=== PATIENT | female | born 1965 | race Caucasian/White ===

== ENCOUNTER 2020-06-30 06:05 | Day surgery (SDC) | payer BC ==
[~2020-06-30] VITALS: Ht 167.6 cm; Wt 69.1 kg
--- NOTE | ~2020-06-30 | OR ---
[facility] [address] [place], [place] [address] Draft DATE OF OPERATION: 06/30/2020 SURGEON: Kizzy Queen MD PREOPERATIVE DIAGNOSIS: Metrorrhagia, endometrial polyp. POSTOPERATIVE DIAGNOSIS: Metrorrhagia, endometrial polyp. PROCEDURE: Hysteroscopy, resection of polyp. ANESTHESIA: MAC. ESTIMATED BLOOD LOSS: Minimal. DRAINS: None. INDICATIONS AND FINDINGS: The patient is a 55-year-old female, 4, para 3, SAB1, who has been having abnormal bleeding on control pills. She has been spotting in between. Evaluation in the office revealed a probable endometrial polyp. At the time of surgery, exam under anesthesia revealed a normal-size uterus without adnexal masses. The cavity sounded to 7.5 cm. The cavity was atrophic other than an anterior fundal polyp. DESCRIPTION OF PROCEDURE: The patient was prepped and draped in the dorsal lithotomy position. A weighted speculum was placed. The anterior lip of the cervix was visualized and grasped with a single-tooth tenaculum. The cavity was sounded to 7.5 cm. The endocervical canal was then dilated to a #8 dilator. Following this, the MyoSure device was placed and the cavity evaluated. The anterior polyp was noted and the remaining cavity was atrophic. Both tubal ostia were identified. The MyoSure Lite was then introduced and the polyp resected using the MyoSure Lite. Following this, the cavity appeared normal. The procedure was then terminated with removal of the instruments. There was no bleeding from the tenaculum site. The insert was removed. The patient was taken to the recovery room in PATIENT NAME: CHRISTOFER HARDING OPERATIVE REPORT DATE OF : 65 REPORT #: [id number] PHYSICIAN: KIZZY QUEEN MD PCP: SLOANE HENLEY DO REPORT IS CONFIDENTIAL AND NOT TO BE RELEASED WITHOUT AUTHORIZATION [address], [place] [address] [facility]. MD YEVGENIY Jerry/TIFFANY /[id number] Copies: ~ PATIENT NAME: CHRISTOFER HARDING OPERATIVE REPORT DATE OF : 65 REPORT #: [id number] PHYSICIAN: KIZZY QUEEN MD PCP: SLOANE HENLEY DO REPORT IS CONFIDENTIAL AND NOT TO BE RELEASED WITHOUT AUTHORIZATION
[~2020-06-30 06:05] MED LIST: ACYCLOVIR400 MG PO; CALCIUM500 MG PO; FLEXERIL5 MG PO; MAG-OXIDE400 MG PO; MULTI VITAMIN1 EACH PO; NAPROXEN500 MG PO; NORDETTE-281 EACH PO; PERCOCET 7.5-31 EACH PO; TURMERIC1 GM MISC; VITAMIN D31000 UNI1 PO; ZOFRAN4 MG PO; ZYRTEC10 MG PO
[2020-06-30] MEDS ORDERED: TYLENOL EXTRA500 MG PO (06:18)
[2020-06-30] MEDS ORDERED: ADVIL200 MG PO (06:19)
--- NOTE | 2020-06-30 07:55 | NUR ---
[facility]IVED IN PACU NON RESPONSIVE TO NOXIOUS STIMULI. 0750 PT REACTIVE TO VERBAL STIMULI. OPENS EYES, THEN FALLS BACK TO SLEEP.
--- NOTE | 2020-06-30 13:28 | NUR ---
PT WAS BEING WHEELED TO OR BY STAFF WAVED TO PT AND GAVE A BLESSING. MET WITH PT'S , HE IS HEADED TO CAFETERIA. WILL WAIT FOR PT. GAVE ENCOURAGEMENT AND BLESSING. WILL FOLLOW NEEDED
--- NOTE | 2020-07-05 12:41 | PATH ---
[facility] [address] [place], [place] [address] Signed SPECIMEN(S): A ENDOMETRIAL POLYP SPECIMEN SOURCE: A. ENDOMETRIAL POLYP CLINICAL HISTORY: Hysteroscopy, DC. Irregular bleeding; endometrial polyp. FINAL PATHOLOGIC DIAGNOSIS: Uterus, endometrium and endometrial polyp, curettage: - Weakly proliferative/early secretory phase endometrium with focal disordered proliferation. - Fragment of endometrium with features suggestive of benign endometrial polyp. - Myometrial smooth muscle with no histopathologic abnormality. - Negative for atypical hyperplasia or malignancy. NAL:cml:C2NR MICROSCOPIC EXAMINATION: Histologic sections of all submitted blocks are examined by light microscopy. These findings, together with the gross examination, support the pathologic diagnosis. GROSS DESCRIPTION: The specimen, labeled "RACHEL, A.," and designated on the requisition "endometrial polyp," is received in formalin and consists of steward-brown tissue fragments with mucus and clot material measuring 2.5 x 1.5 x 0.4 cm in aggregate. Specimen is filtered and entirely submitted in cassette (A1). AT (under the direct supervision of a pathologist) The Gross Description was prepared using a voice recognition system. The report was reviewed for accuracy; however, sound-alike word errors, addition and/or deletions may occur. If there is any question about this report, please contact Client Services. PERFORMING LABORATORY: The technical component was performed by [facility], [address] [place] [id number] ([employer] Salesperson: Kimi Hager MD; CLIA# [id number]). Professional interpretation was performed by [facility], [facility], [address] [place] [id number] (CLIA# [id number]). PATIENT NAME: CHRISTOFER HARDING PATHOLOGY DATE OF : 65 REPORT #: [id number] PHYSICIAN: [facility] PCP: SLOANE HENLEY DO REPORT IS CONFIDENTIAL AND NOT TO BE RELEASED WITHOUT AUTHORIZATION [facility] [address] [place] [address] Signed Diagnostician: Darleen Byrne MD Pathologist Electronically Signed 07/05/2020 Copies: ~ PATIENT NAME: CHRISTOFER HARDING PATHOLOGY DATE OF : 65 REPORT #: [id number] PHYSICIAN: DE[facility] PATHOLOGY PCP: SLOANE HENLEY DO REPORT IS CONFIDENTIAL AND NOT TO BE RELEASED WITHOUT AUTHORIZATION
== END 2020-06-30 08:40 | disposition home or self-care (01) ==
LOC: DS 06:05
PROVIDERS: ATTEND Obstetrics & Gynecology
PROC: 0UB98ZX Excision of Uterus, Via Natural or Artificial Opening Endoscopic, Diagnostic (ICD-10-PCS; principal; 2020-06-30 06:45)
DX: N84.0 Polyp of corpus uteri (principal); Z79.899 Other long term (current) drug therapy; Z79.1 Long term (current) use of non-steroidal anti-inflammatories (NSAID); Z79.3 Long term (current) use of hormonal contraceptives; Z88.5 Allergy status to narcotic agent
CPT/HCPCS: 00952; J0131; J1100; J2001; J2405; J2704; J2765; J3010; J7121

== ENCOUNTER 2021-04-16 13:57 | Emergency (ER) | payer OTHER, BC ==
[~2021-04-16] VITALS: Ht 167.6 cm; Wt 69.0 kg
[~2021-04-16 13:57] MED LIST changes: +ADVIL200 MG PO; +TYLENOL EXTRA500 MG PO
[2021-04-16] MEDS ORDERED: HYDROMORPHONE HC2 MG PO (15:54)
[2021-04-16] MEDS ORDERED: KETOROLAC TROME10 MG PO (15:54)
== END 2021-04-16 16:30 | disposition home or self-care (01) ==
LOC: ED 13:57
DX: S76.311A Strain of muscle, fascia and tendon of the posterior muscle group at thigh level, right thigh, initial encounter (principal); W01.0XXA Fall on same level from slipping, tripping and stumbling without subsequent striking against object, initial encounter; Y93.01 Activity, walking, marching and hiking; Z88.5 Allergy status to narcotic agent; Z79.899 Other long term (current) drug therapy
CPT/HCPCS: 73502; 96374; 96375; 99283-25; J1170; J1885

== ENCOUNTER 2023-08-29 07:10 | Day surgery (SDC) | payer BC ==
[2023-08-21 08:25] VITALS: BP 110/64
[~2023-08-29] VITALS: Ht 167.6 cm; Wt 70.9 kg
--- NOTE | ~2023-08-29 | OR ---
[facility] [address] [place], [place] [address] Draft DATE OF OPERATION: 08/29/2023 SURGEON: Zack Queen MD PREOPERATIVE DIAGNOSIS: Pelvic pain, postmenopausal bleeding. POSTOPERATIVE DIAGNOSES: Pelvic pain, postmenopausal bleeding with small area of endometriosis. ANESTHESIA: General ET. ESTIMATED BLOOD LOSS: Minimal. DRAINS: None. INDICATIONS AND FINDINGS: The patient is a 58-year-old female, who has been having some pelvic pain as well as abnormal bleeding. Ultrasound was normal though the endometrial stripe was approximately 3.5 cm. At the time of the surgery, the exam under anesthesia was normal. At the time of laparoscopy, the pelvis appeared normal other than a tiny area of endometriosis in the right pelvis. On hysteroscopy, the cavity appeared completely atrophic. DESCRIPTION OF PROCEDURE: The patient is prepped and draped in the dorsal lithotomy position. A weighted speculum was placed. The anterior lip of the cervix was visualized and grasped with a single-tooth tenaculum. The Hulka clamp was then placed and the tenaculum and speculum removed. Attention was directed above. The infraumbilical area was injected with 0.5% Marcaine plain. The incision was made with a knife, and each layer was serially elevated incised until the fascia was opened and identified and stay sutures of 0 Vicryl were placed. The peritoneum was opened bluntly. Heidy was placed and the balloon inflated. The abdomen was then inflated with carbon dioxide gas. Once it was appropriately distended, a secondary port was placed on the left side. This area is transilluminated, injected with the Marcaine, incision made with a knife and a 5 mm port placed under direct vision. Following this, the pelvis was completely evaluated and it was normal except for that tiny area of endometriosis and this area was cauterized. It PATIENT NAME: CHRISTOFER HARDING OPERATIVE REPORT DATE OF : 65 REPORT #: [id number] PHYSICIAN: ZACK QUEEN MD PCP: MOESS CAMACHO REPORT IS CONFIDENTIAL AND NOT TO BE RELEASED WITHOUT AUTHORIZATION [facility] [address] [place], [place] [address] Draft was very superficial. Following this, the instruments were removed from the abdomen after allowing as much CO2 as possible to escape. The fascia was re-identified and closed with a running suture of 0 Vicryl. The skin incisions were closed with subcuticular sutures of 3-0 Vicryl Rapide. Attention was directed down below and the weighted speculum was replaced. The Hulka clamp was removed and the tenaculum replaced. The endocervical canal was then dilated to a #8 dilator. The uterus sounded to 8 cm. The MyoSure device was placed and the cavity evaluated. The cavity was completely atrophic with no abnormality seen. Hysteroscopy was complete with removal of the MyoSure and the tenaculum. There was some bleeding from the tenaculum sites, which does not respond to pressure with the ring forceps. Following this, a suture of 0 chromic was placed in a [id number] manner with good hemostasis noted. All sponge and needle counts were correct. She tolerated the procedure well and was taken to the recovery room in good condition. MD JESUS JerryW/MODL /[id number] Copies: ~ PATIENT NAME: MEHDICHRISTOFER CHONGN OPERATIVE REPORT DATE OF : 65 REPORT #: [id number] PHYSICIAN: ZACK QUEEN MD PCP: MOSES CAMACHO REPORT IS CONFIDENTIAL AND NOT TO BE RELEASED WITHOUT AUTHORIZATION
[~2023-08-29 07:10] MED LIST changes: +HYDROMORPHONE HC2 MG PO; +KETOROLAC TROME10 MG PO; +TURMERIC500 M3 PO
[2023-08-29 07:24] VITALS: BP 124/76
--- NOTE | 2023-08-29 10:49 | NUR ---
08/29/23 1049 Brenda Kmuari 1045 PT AWAKE DENIES NAUSEA, REPORTS PAIN IS 4/10 BUT TOLERABLE. PT FELL BACK TO SLEEP.
[2023-08-29 11:55] VITALS: BP 117/71
--- NOTE | 2023-08-29 12:30 | NUR ---
LE 1150 PATIENT BACK TO TREATMENT ROOM. VITAL SIGNS COMPLETE. PATIENT ALERT AND ORIENTED. BREATHING EQUAL AND UNLABORED. OXYGEN SATURATIONS 90% ON ROOM AIR. PATIENT PAIN IS 2/10 AND TOLERABLE. PATIENT DENIES BEING NAUSEATED. LAP SITES CLEAN, DRY AND INTACT. IVF INFUSING. SCD'S ON. AT BEDSIDE. CALL LIGHT WITHIN REACH NO FUTHER NEEDS OR QUESTIONS. LE 1215 PATIENT DRINKING BROTH, WATER. EATING CRACKERS. CALL LIGHT WITHIN REACH NO FUTHER NEEDS.
[2023-08-29 12:52] VITALS: BP 118/60
--- NOTE | 2023-08-29 12:54 | NUR ---
LE 1250 PATIENT IS ALERT AND ORIENTED. BREATHING EQUAL AND UNLABORED. OXYGEN SATURATIONS ABOVE 90% ON ROOM AIR. PATIENT DENIES HAVING ANY PAIN. PATIENT DENIES HAVING NAUSEA, PATIENT SURGICAL SITE CLEAN, DRY AND INTACT. CALL LIGHT WITHIN REACH NO FUTHER NEEDS. FRIEND AT BEDSIDE.
--- NOTE | 2023-08-29 13:37 | NUR ---
1335 PATIENT ABLE TO AMBULATE TO THE RESTROOM. PATIENT VOIDED PINK/RED URINE. 300 MLS. PATIENT GIVEN A MEGHANA PAD. PATIENT LAP SITES CLEAN, DRY AND INTACT. PATIENT DENIES PAIN OR BEING NAUSEATED. PATIENT ABLE TO DRESS SELF AND TOLERATED IT WELL. PATIENT GIVEN DISCHARGE INSTRUCITONS. NO QUESITIONS AT THIS TIME. PATIENT WAITING TILL 1355 TO DISCHARGE D/T PHARMACY FILLING SCRIPT.
--- NOTE | 2023-08-29 14:19 | NUR ---
LE 1355 PATIENT WHEELED OUT TO PRIVATE AUTO. NO QUESTIONS AT THIS TIME. PATIENT DISCHARGED.
--- NOTE | 2023-08-31 11:30 | PATH ---
[facility] [address] [place], [place] [address] Signed SPECIMEN(S): A FALLOPIAN TUBES, BILATERAL SPECIMEN SOURCE: A. FALLOPIAN TUBES, BILATERAL CLINICAL HISTORY: Postmenopausal bleeding, pelvic pain. FINAL PATHOLOGIC DIAGNOSIS: Fallopian tubes, bilateral, salpingectomy: - Fimbriated fallopian tube segments (two) with a paratubal cyst BRP MICROSCOPIC EXAMINATION: Histologic sections of all submitted blocks are examined by light microscopy. These findings, together with the gross examination, support the pathologic diagnosis. GROSS DESCRIPTION: The specimen, labeled and designated "Harding, bilateral fallopian tubes," is received in formalin and consists of two undesignated fallopian tubes. Both show fimbria and violaceus and smooth serosa. The first tube measures 7.5 x 0.7 cm. The second fallopian tube measures 5.0 x 0.6 cm. Sectioning through both fallopian tubes is grossly unremarkable. Cassette Summary: (A1) first fallopian tube, sales training representative sections (A2) second fallopian tube, sales training representative sections JS (under the direct supervision of a pathologist) The Gross Description was prepared using a voice recognition system. The report was reviewed for accuracy; however, sound-alike word errors, addition and/or deletions may occur. If there is any question about this report, please contact Client Services. ADDITIONAL NOTES: Immunohistochemical and/or in situ hybridization studies if performed in this case included appropriate positive controls that reacted as expected. This test was developed and its performance characteristics determined by [facility]. It has not been cleared or approved by the U.S. Food and Drug Administration. The FDA has determined that such clearance or approval is not necessary. This test is used for clinical purposes. It should not be regarded PATIENT NAME: CHRISTOFER HARDING PATHOLOGY DATE OF : 65 REPORT #: [id number] PHYSICIAN: DEANNE PATHOLOGY PCP: MOSES CAMACHO REPORT IS CONFIDENTIAL AND NOT TO BE RELEASED WITHOUT AUTHORIZATION [facility] [address] [place], [place] [address] Signed as investigational or for research. [facility] is certified under the Clinical Laboratory Improvement Amendments of 1988 (CLIA) as qualified to perform high complexity clinical laboratory testing. PERFORMING LABORATORY: Technical component was performed by [facility], [address] [place] [id number] (CLIA# [id number]). Professional interpretation was performed by [facility], [address] [place] [place] [address] (CLIA#:[id number]). Diagnostician: Tahir Harding MD Pathologist Electronically Signed 08/31/2023 Copies: ~ PATIENT NAME: CHRISTOFER HARDING PATHOLOGY DATE OF : 65 REPORT #: [id number] PHYSICIAN: DEANNE PATHOLOGY PCP: MOSES CAMACHO REPORT IS CONFIDENTIAL AND NOT TO BE RELEASED WITHOUT AUTHORIZATION
== END 2023-08-29 13:55 | disposition home or self-care (01) ==
LOC: DS 07:10 → OPS 07:10 → DS 09:15 → OPS 13:55
PROVIDERS: ATTEND Obstetrics & Gynecology
PROC: 0UB74ZZ Excision of Bilateral Fallopian Tubes, Percutaneous Endoscopic Approach (ICD-10-PCS; principal; 2023-08-29 09:15)
DX: N95.0 Postmenopausal bleeding (principal); N83.8 Other noninflammatory disorders of ovary, fallopian tube and broad ligament; Z88.8 Allergy status to other drugs, medicaments and biological substances
CPT/HCPCS: J0131; J1100; J1170; J1644; J1885; J2250; J2405; J2704; J2765; J3010; J3490; J7121

== ENCOUNTER 2024-12-01 10:49 | Day surgery (SDC) | payer BC ==
[~2024-12-01] VITALS: Ht 167.6 cm; Wt 69.0 kg
[~2024-12-01 10:49] MED LIST changes: +ACETAMINOPHEN-1 EAC3 PO; +ASHWAGANDHA300 MG PO; +CALCIUM 250-D1 EACH PO; -CALCIUM500 MG PO; +CEFAZOLIN SODIUM 2 GM/20 ML SYR IV SCH; +ESTROVEN MAX400 MCG PO; +IBLOOD GLUCOSE TEST STRIP 1 EA TEST VI PRN; +KETOROLAC TROMETHAMINE 30 MG/ML VIAL ONE; +LACTATED RINGER'S 1,000 ML IV SCH; +LIDOCAINE HCL 1% 5 ML SDV INJ ONE; +PROBIOTIC1 EAC5 PO; +PROBIOTIC250 MG PO; +TRIAMCINOLONE ACET 40 MG/ML VIAL 1 ML ONE; +TYLENOL325 MG PO; +VITAMIN C500 M5 PO; +ZINC50 MG PO; +[UNRECOGNIZED DRUG - OTHER]
[2024-12-01] MEDS ORDERED: NALOXONE HCL 0.4 MG SYR IV PRN (11:00)
[2024-12-01] MEDS ORDERED: ondansetron HCL 4 MG/2 ML VIAL IV PRN (11:00)
[2024-12-01] MEDS ORDERED: fentaNYL citrate 50 MCG/ML SDV IV PRN (11:00)
[2024-12-01] MEDS ORDERED: IBLOOD GLUCOSE TEST STRIP 1 EA TEST VI PRN (11:00)
[2024-12-01 11:13] VITALS: BP 111/63
[2024-12-01] MEDS ORDERED: KETOROLAC TROMETHAMINE 30 MG/ML VIAL ONE (11:50)
[2024-12-01] MEDS ORDERED: LIDOCAINE HCL 2% 5 ML SDV ONE (11:50)
[2024-12-01] MEDS ORDERED: DEXAMETHASONE SOD PHOS 4 MG/ML VIAL ONE (11:50)
[2024-12-01] MEDS ORDERED: MIDAZOLAM HCL 2 MG/2 ML VIAL ONE (11:50)
[2024-12-01] MEDS ORDERED: fentaNYL citrate 100 MCG/2 ML VIAL ONE (11:50)
[2024-12-01] MEDS ORDERED: ondansetron HCL 4 MG/2 ML VIAL ONE (11:50)
[2024-12-01] MEDS ORDERED: propofoL 200 MG/20 ML VIAL ONE (11:50)
[2024-12-01] MEDS ORDERED: KETOROLAC TROMETHAMINE 15 MG/ML VIAL IV PRN (12:15)
[2024-12-01] MEDS ORDERED: TRAMADOL HCL 50 MG TAB PO PRN (12:15)
[2024-12-01] MEDS ORDERED: GLYCOPYRROLATE 1 MG/5 ML MDV ONE (12:25)
[2024-12-01] MEDS ORDERED: ePHEDrine sulfate 50 MG/ML AMP ONE (12:32)
[2024-12-01] MEDS ORDERED: ACETAMINOPHEN 1,000 MG/100 ML VIAL ONE (12:38)
[2024-12-01] MEDS ORDERED: DICLOFENAC SODI75 MG PO (12:55)
[2024-12-01] MEDS ORDERED: TRAMADOL HCL50 MG PO (12:56)
[2024-12-01] MEDS ORDERED: HYDROmorphone HCL 1 MG/ML SYR ONE (13:26)
[2024-12-01] MEDS ORDERED: droPERidol 5 MG/2 ML VIAL ONE (13:40)
[2024-12-01] MEDS ORDERED: HYDROmorphone HCL 1 MG/ML SYR IV PRN (13:45)
[2024-12-01] MEDS ORDERED: droPERidol 5 MG/2 ML VIAL IV PRN (13:45)
[2024-12-01] MEDS ORDERED: SEVOFLURANE 250 ML BTL INH ONE (13:58)
[2024-12-01 14:05] VITALS: BP 104/59
--- NOTE | 2024-12-01 14:05 | NUR ---
PT ARRIVED BACK TO ON RA, AAOX3, AND ANSWERING QUESTIONS APPROPRIATELY. PTS IN ROOM UPON HER RETURN. REPORT RECEIVED FROM [employer]ADIES[employer] LOCKER ROOM ATTENDANT AND SURGICAL SITE WAS VISUALIZED. DRSG TO R KNEE APPEARS CDI. RLE IS ELEVATED AT APPROX HEART LEVEL WITH ICE IN PLACE TO SURGICAL SITE. PT ALSO NOTED WITH ICE PACK TO BACK OF HEAD D/T REPORTS OF FREEMAN AND NAUSEA. LIGHTS DIM FOR PTS COMFORT. IV SITE ASSESSED AND INFUSING LR PER ORDERS. VS TAKEN. PT REPORTS PAIN 4/10 IN R KNEE. NO PAIN IN R HAND R/T KENALOG INJECTION ALSO GIVEN IN OR. NO REDNESS OR BLEEDING NOTED FROM R HAND. PT ALSO REPORTS SOME NAUSEA, BUT DOES SAY IT IS IMPROVING. PT PROVIDED WITH SALTINE CRACKERS, ICE WATER, DIET PEPSI, AND JELLO. BED IN LOW POSITION, WHEELS LOCKED, BILAT RAILS IN PLACE. CALL LIGHT WITHIN PT REACH. PTS REMAINS AT BEDSIDE. PT RECEIVED FLOWER DELIVERY WELL. ALL QUESTIONS ANSWERED.
--- NOTE | 2024-12-01 14:21 | NUR ---
PO PAIN MEDS GIVEN PER EMAR FOR REPORTS OF PAIN 4/10 IN R KNEE AREA.
--- NOTE | 2024-12-01 14:25 | NUR ---
INTO PTS ROOM FOR DC EDUCATION. PTS REMAINS AT BEDSIDE. PT GIVEN VERBAL AND WRITTEN DC INSTRUCTIONS WELL DR. ANDREA POST-OPERATIVE INSTRUCTIONS HAND OUT FOR KNEE ARTHROSCOPIES. PT PROVIDED POST-OP APPT FOR 12/11/[address] ANDREA AFTER HOURS PHONE NUMBER. PT VERBALIZED UNDERSTANDING AND ALL QUESTIONS WERE ANSWERED. ICE WATER REFILLED. FALL PREVENTIONS IN PLACE. CALL LIGHT WITHIN PT REACH.
--- NOTE | 2024-12-01 14:40 | NUR ---
DR. ANDREA NOTIFIED OF PTS NEED FOR ZOFRAN RX FOR HOME. RX FOR ZOFRAN 4MG ODT TABS, 1 TAB PO Q6H PRN N/V, #[address] [facility]. PT AND SPOUSE INFORMED.
--- NOTE | 2024-12-01 14:45 | NUR ---
PT FEELS SHE MAY BE ABLE TO VOID AND WOULD LIKE TO TRY AND USE RESTROOM. PT ASSISTED WITH SITTING UP ON EOB AND THEN AMBULATED DOWN KIM TO RESTROOM WITH RN SUPERVISION AND SPOUSE ASSISTANCE FOR SAFETY. PT ABLE TO VOID APPROX 150 ML OF CLR, YELLOW URINE. PT AMBULATED BACK TO ROOM WITH RN SUPERVISION AND SPOUSE ASSIST. PT DRESSING WITH HUSBANDS ASSISTANCE. PERSONAL BELONINGS AND CALL LIGHT ON BED WITHIN PT REACH.
[2024-12-01 15:00] VITALS: BP 119/44
--- NOTE | 2024-12-01 15:00 | NUR ---
INTO PTS ROOM FOR ROUTINE REASSESSMENT. VS TAKEN. SURGICAL SITE VISUALIZED AND DRSG REMAINS CDI POST-AMBULATION. PT REPORTS MINIMAL NAUSEA, SIGNIFICANTLY IMPROVED FROM EARLIER. PT RATES PAIN 3/10 IN R KNEE, REPORTING IMPROVEMENT AFTER PO PAIN MEDS GIVEN EARLIER AND WITH RESTING AFTER RECENT AMBULATION. PT REPORTS THIS TO BE A TOLERABLE LEVEL OF PAIN FOR HER AND DECLINES NEED FOR FURTHER PAIN INTERVENTIONS AT THIS TIME. ICE PACKS REFILLED FOR PT. PT REPORTS FREEMAN ALMOST GONE AFTER EATING AND DRINKING. PT HAS TOLERATED PO FOOD AND FLUIDS WITH VOMITTING OR WORSENING NAUSEA. PT REMAINS AAOX3 AND ABLE TO MAKE HER NEEDS KNOWN. AT BEDSIDE.
--- NOTE | 2024-12-01 15:05 | NUR ---
IV REMOVED. TIP APPEARS INTACT. PRESSURE DRSG APPLIED WITH GAUZE AND COBAN. PTS SPOUSE LEFT TO PULL CAR AROUND TO FRONT FOR DC HOME.
--- NOTE | 2024-12-01 15:10 | NUR ---
PT DISCHARGED FROM DS VIA WC TO PASSENGER SIDE OF SPOUSE'S VEHICLE. ALL PERSONAL BELONINGS TAKEN WITH PT.
[2024-12-01 15:38] VITALS: BP 101/58
--- NOTE | 2024-12-01 16:20 | NUR ---
12/01/24 1620 Ariella Vinson María 1258- PT PRESENTS TO PACU, SUPINE POSITION, NON REACTIVE TO STIMULUS. OPA IN PLACE, 6L O2 PER MASK, BREATHING EVEN AND NON LABORED. ABD SOFT, NON DISTENDED. LR INFUSING TO LH IV. ALL MONITORS IN PLACE. 1306- PT WAKES ON OWN TURNING HEAD AND TRYING TO TALK THROUGH OPA. FOLLOWS COMMANDS TO REMOVE OPA. PT REORIENTED TO TIME AND PLACE. C/O KNEE PAIN, DENIES NAUSEA. 1312- PT REPORTS PAIN TO KNEE CAP, RIGHT ANKLE AND RIGHT HIP. LEG ELEVATED ON PILLOW AND ICE TO SURGICAL SITE. MEDICATED WITH FENTANYL PER ORDERS. 1319- PT REPORTS PAIN HAS WORSENED AFTER 1ST DOSE, 2ND DOSE OF FENTANYL GIVEN. PT C/O SAME PAIN AND HEADACHE. DENIES NAUSEA AT THIS TIME. 1325- ICE CHIPS PROVIDED, PT TOLERATING WELL. COOL RAG TO FOREHEAD AND ICE BEHIND NECK FOR HEADACHE. PT REPORTS SOME IMPROVEMENT IN HEADACHE. PAIN IN LEG REMAINS THE SAME, CONTACTED [employer] PAY TECHNICIAN FOR FURTHER PAIN MANAGEMENT, ORDERS FOR DILAUDID RECEIVED. 1330- PT MEDICATED WITH DILAUDID AT THIS TIME WITH ZOFRAN FOR PT H/O NAUSEA. 1335- PT REPORTS NAUSEA AND WORSENING. CONTACTED [employer] PAY TECHNICIAN FOR FURTHER ANTI EMETICS. ORDER FOR INAPSINE RECEIVED. 1342- PT REPORTS NO RELIEF AND REQUESTS INAPSINE TO BE GIVEN. PAIN IN LEG IS IMPROVING AT THIS TIME. 1355- PT REPORTS PAIN IS DOWN TO 4/10 AND TOLERABLE. DISCUSSED PLAN TO RETURN TO DAY SURGERY AND CONTINUE PAIN MANAGEMENT. 1405- PT TAKEN BACK TO DAY SURGERY, AT BEDSIDE. DRESSING ASSESSED AT BEDSIDE WITH JANNETTE WYATT. PT WAKES EASILY BUT DROWSY. REPORT TO JANNETTE WYATT AT BEDSIDE, CARE OF PT TURNED OVER AT THIS TIME.
[2024-12-01] MEDS ORDERED: DICLOFENAC SOD 75 MG TABEC PO SCH (21:00)
--- NOTE | 2024-12-04 12:07 | OR ---
[facility] [address] [place], [place] [address] Signed DATE OF OPERATION: 12/01/2024 SURGEON: Joey Kumari MD PREOPERATIVE DIAGNOSES: 1. Medial meniscus tear, right knee. 2. Right triangular fibrocartilage complex tear. POSTOPERATIVE DIAGNOSIS: Medial and lateral meniscus tears, right knee. PROCEDURE PERFORMED: 1. Medial and lateral meniscectomies. 2. Right wrist injection. STUDIO CONTROL OPERATOR: Raysa Hurt PA-C. ANESTHESIA: General. BLOOD LOSS: Minimal. BRIEF HISTORY: Christofer is a 59-year-old female with pain and instability in her knee. MRI was consistent with medial meniscus tear and possible lateral meniscus tear. Risks and benefits of operative treatment were discussed with her and she elected to proceed. Once consent was obtained, she was taken to the operating room. After she was positioned on operating table under adequate general, the right wrist was prepped with alcohol and injected with 2 mL of 0.25% Marcaine, 2 mL of Kenalog 40. The right leg was then placed in a leg forbes, prepped and draped in a standard sterile fashion. The left was placed in well-padded leg forbes in an abducted position. The portal sites were injected using 0.25% Marcaine with epinephrine after the prep. The standard inferolateral and superolateral portals were made. The scope was introduced into the knee. ARTHROSCOPIC FINDINGS: The patella was noted to track well with no significant chondromalacia. Medial and lateral gutters were clear. ACL and PCL were intact. Medial compartment showed diffuse Electronically Signed By: JOEY KUMARI MD 12/03/24 0655 Electronically Signed By: JOEY KUMARI MD 12/05/24 1031 PATIENT NAME: CHRISTOFER HARDING OPERATIVE REPORT DATE OF : 65 REPORT #: [id number] PHYSICIAN: JOEY KUMARI MD PCP: MOSES CAMACHO REPORT IS CONFIDENTIAL AND NOT TO BE RELEASED WITHOUT AUTHORIZATION [facility] [address] [place], [place] [address] Signed complex tear from mid medial body extending posteriorly. The lateral compartment showed a large tear of the lateral meniscus. It was flipped anteriorly. It was not a locked bucket-handle, but it was a large anteriorly based flap. DESCRIPTION OF OPERATION: Standard inferomedial portal was made after localization using a spinal needle. The medial meniscus was trimmed and smoothed using the straight biter and shaver. Attention was then turned to the lateral meniscus. Most of it was removed using the shaver to allow entry and visualization. The remaining meniscus was trimmed using straight and curved biters and then smoothed using shaver. All debris was evacuated. There was no significant chondromalacia in either compartment. The scope was then withdrawn. Portals were closed with 3-0 nylon and the knee was injected with 60 mg Toradol. The wounds were dressed with Adaptic, ABD, and Estuardo wrap. She tolerated the procedure well. All sponge, needle, and instrument counts were correct. Joey Kumari MD BA/MODL /[id number] Copies: ~ Electronically Signed By: JOEY KUMARI MD 12/03/24 0655 Electronically Signed By: JOEY KUMARI MD 12/05/24 1031 PATIENT NAME: CHRISTOFER HARDING OPERATIVE REPORT DATE OF : 65 REPORT #: [id number] PHYSICIAN: JOEY KUMARI MD PCP: MOSES CAMACHO REPORT IS CONFIDENTIAL AND NOT TO BE RELEASED WITHOUT AUTHORIZATION
== END 2024-12-01 15:10 | disposition home or self-care (01) ==
LOC: DS 10:49
PROVIDERS: ATTEND Specialist
PROC: 0SBC4ZZ Excision of Right Knee Joint, Percutaneous Endoscopic Approach (ICD-10-PCS; principal; 2024-12-01 12:35)
PROC: 0SBC4ZZ Excision of Right Knee Joint, Percutaneous Endoscopic Approach (ICD-10-PCS; 2024-12-01 12:35)
DX: S83.231A Complex tear of medial meniscus, current injury, right knee, initial encounter (principal); S83.281A Other tear of lateral meniscus, current injury, right knee, initial encounter; X58.XXXA Exposure to other specified factors, initial encounter; Z88.5 Allergy status to narcotic agent; Z79.899 Other long term (current) drug therapy
CPT/HCPCS: 01400; J0131; J0690; J1100; J1171; J1790; J1885; J2003; J2250; J2405; J2704; J3010; J3301; J7121